=== PATIENT | male | born 1945 | race American Indian/Alaskan Native ===

== ENCOUNTER 2019-10-14 00:28 | Emergency (ER) | payer MEDICARE ==
[2019-10-14 00:46] VITALS: BP 165/99
--- NOTE | 2019-10-14 01:27 | Emergency Department Report ---
HPI - General Chief Complaint: Fall Time Seen by Provider: 10/14/19 01:17 - HPI HPI: Room 5 The patient is a 74-year-old male presenting with chief complaint of fall from bed. The patient is a resident at [facility]. Staff states they heard the patient fall from his bed and hit the ground and when he went to his room he was conscious and in no acute distress. Patient was sent to the ED for evaluation for potential head injury. The patient has a history of Alzheimer's and is a poor historian. Patient currently denies pain Location: [See above] Duration: [See above] Quality: [See above] Severity: [See above] Timing: [See above] Context: [See above] Modifying factors: [See above] Associated signs and symptoms: [see above] ED Past Medical Hx - Past Medical History Previous Medical History?: Yes Additional medical history: alzheimers - Surgical History Past Surgical History?: No - Family History Family history: no significant - Social History Smoking Status: Never Smoker Substance Use Type: None ED Review of Systems ROS: Stated complaint: FALL FROM BED Other details as noted in HPI Comment: Unobtainable due to pts medical conditions Physical Exam - Physical Exam Vital Signs: Vital Signs 10/14/19 00:38 Temperature 98 F Pulse Rate 71 Respiratory 16 Rate Blood Pressure 165/99 O2 Sat by Pulse 97 Oximetry Physical Exam: GENERAL: The patient is well-developed well-nourished male sleeping on stretcher not appearing to be in acute distress. [] HEENT: Normocephalic. Patient has moist mucous membranes. NECK: Supple. Taken midline CHEST/LUNGS: Clear to auscultation. There is no respiratory distress noted. HEART/CARDIOVASCULAR: Regular. There is no tachycardia. There is no gallop rub or murmur. ABDOMEN: Abdomen is soft, nontender. Patient has normal bowel sounds. There is no abdominal distention. SKIN: There is no rash. There is no edema. There is no diaphoresis. NEURO: The patient has a history of Alzheimer's and is a poor historian. Patient is not cooperative with neurologic exam MUSCULOSKELETAL: There is no tenderness to palpation of either lower extremity ED Course Vital Signs 10/14/19 00:38 Temperature 98 F Pulse Rate 71 Respiratory 16 Rate Blood Pressure 165/99 O2 Sat by Pulse 97 Oximetry ED Medical Decision Making - Radiology Data Radiology results: report reviewed (CT head, CT cervical spine), image reviewed (CT head, CT cervical spine) [address] [address] Cat Scan Report Signed Patient: GIUSEPPE FOSTER MR#: [id number] : 1945 Acct:[id number] Age/Sex: 74 / M ADM Date: 10/14/19 Loc: ED Attending Dr: Ordering Physician: SANDRA JOHN MD Date of Service: 10/14/19 Procedure(s): CT head/brain wo con Accession Number(s): [id number] cc: SANDRA JOHN MD CT HEAD WITHOUT CONTRAST INDICATION : Head and neck pain started after fall from bed.. TECHNIQUE: Axial, coronal and sagittal CT imaging was performed from the skull apex through the skull base without contrast. All CT scans at this location are performed using CT dose reduction for ALARA by means of automated exposure control. COMPARISON: None available. FINDINGS: PARENCHYMA: No mass, midline shift, hemorrhage, extraaxial collection or acute territorial infarction. Generalized atrophy is consistent with the patient's age. VENTRICLES: Enlarged secondary to atrophy without an acute abnormality. SOFT TISSUES: Soft tissues including the orbits appear normal. BONES: No acute osseous abnormality. SINUSES: The visualized sinuses are clear. The left mastoid air cells are patent. The right mastoid air cells are mostly opacified by fluid. ADDITIONAL FINDINGS: None. IMPRESSION: 1. No acute abnormality. 2. Additional findings as above. Signer Name: Thomas Dee MD Signed: 10/14/2019 2:52 AM Workstation Name: [id number] Transcribed By: [place] Dictated By: Thomas Dee MD Electronically Authenticated By: Thomas Dee MD Signed Date/Time: 10/14/19251 DD/ 0 TD/TT: [address] [address] Cat Scan Report Signed Patient: GIUSEPPE FOSTER MR#: [id number] : 1945 Acct:[id number] Age/Sex: 74 / M ADM Date: 10/14/19 Loc: ED Attending Dr: Ordering Physician: SANDRA JOHN MD Date of Service: 10/14/19 Procedure(s): CT cervical spine wo con Accession Number(s): [id number] cc: SANDRA JOHN MD CT CERVICAL SPINE WITHOUT CONTRAST INDICATION: Neck pain after fall out of bed. COMPARISON: None available. TECHNIQUE: Axial, coronal and sagittal CT imaging of the cervical spine without contrast was performed. All CT scans at this location are performed using CT dose reduction for ALARA by means of automated exposure control. FINDINGS: VERTEBRAE:No acute fracture. Normal alignment. DISC SPACES: Multilevel severe discogenic degenerative changes are noted. FACET JOINTS:No significant abnormality. CENTRAL CANAL: No significant central canal stenosis is seen. There is multilevel bilateral neural foraminal narrowing. SOFT TISSUES:No acute abnormality. LUNG APICES: No significant abnormality. ADDITIONAL FINDINGS: None IMPRESSION: 1. No acute abnormality of the cervical spine. 2. Severe cervical spondylosis. Signer Name: Thomas Dee MD Signed: 10/14/2019 2:51 AM Workstation Name: [id number] Transcribed By: [place] Dictated By: Thomas Dee MD Electronically Authenticated By: Thomas Dee MD Signed Date/Time: 10/14/19250 DD/ TD/TT: - Differential Diagnosis closed head injury, ICH, skull fracture Critical care attestation.: If time is entered above; I have spent that time in minutes in the direct care of this critically ill patient, excluding procedure time. ED Disposition Clinical Impression: Closed head injury, Scalp abrasion Disposition: DC/TX-70 ANOTHER TYPE HLTHCARE Is pt being admited?: No Does the pt Need Aspirin: No Condition: Stable Instructions: Minor Head Injury (ED) Additional Instructions: Return to the emergency department should you develop worsening symptoms, inability to tolerate food or liquids, high fever or any other concerns Time of Disposition: 03:08
[2019-10-14] MEDS ORDERED: MIDAZOLAM 5 MG/5 ML INJ MDV IV NR (02:00)
--- NOTE | 2019-10-14 02:55 | Cat Scan Report ---
CT CERVICAL SPINE WITHOUT CONTRAST INDICATION: Neck pain after fall out of bed. COMPARISON: None available. TECHNIQUE: Axial, coronal and sagittal CT imaging of the cervical spine without contrast was performe d. All CT scans at this location are performed using CT dose reduction for ALARA by means of automat ed exposure control. FINDINGS: VERTEBRAE:No acute fracture. Normal alignment. DISC SPACES: Multilevel severe discogenic degenerative changes are noted. FACET JOINTS:No significant abnormality. CENTRAL CANAL: No significant central canal stenosis is seen. There is multilevel bilateral neural fo raminal narrowing. SOFT TISSUES:No acute abnormality. LUNG APICES: No significant abnormality. ADDITIONAL FINDINGS: None IMPRESSION: 1. No acute abnormality of the cervical spine. 2. Severe cervical spondylosis. Signer Name: Thomas Dee MD Signed: 10/14/2019 2:51 AM Workstation Name: [id number]
--- NOTE | 2019-10-14 02:57 | Cat Scan Report ---
CT HEAD WITHOUT CONTRAST INDICATION : Head and neck pain started after fall from bed.. TECHNIQUE: Axial, coronal and sagittal CT imaging was performed from the skull apex through the skul l base without contrast. All CT scans at this location are performed using CT dose reduction for ALA RA by means of automated exposure control. COMPARISON: None available. FINDINGS: PARENCHYMA: No mass, midline shift, hemorrhage, extraaxial collection or acute territorial infarctio n. Generalized atrophy is consistent with the patient's age. VENTRICLES: Enlarged secondary to atrophy without an acute abnormality. SOFT TISSUES: Soft tissues including the orbits appear normal. BONES: No acute osseous abnormality. SINUSES: The visualized sinuses are clear. The left mastoid air cells are patent. The right mastoid a ir cells are mostly opacified by fluid. ADDITIONAL FINDINGS: None. IMPRESSION: 1. No acute abnormality. 2. Additional findings as above. Signer Name: Thomas Dee MD Signed: 10/14/2019 2:52 AM Workstation Name: [id number]
[2019-10-14] MEDS ORDERED: NEOMY 3.5 MG/BACIT 400 UNITS/POLY B 5000 UNITS/GM OINT PACKET TP ONE (03:11)
[2019-10-14] MEDS ORDERED: NEOMY 3.5 MG/BACIT 400 UNITS/POLY B 5000 UNITS OINT 15 GM TP ONE (03:14)
[2019-10-14] MEDS ORDERED: NEOMY 3.5 MG/BACIT 400 UNITS/POLY B 5000 UNITS OINT 15 GM TP SCH (08:00)
== END 2019-10-14 04:04 | disposition other institution (70) ==
LOC: ED 00:28
DX: S00.01XA Abrasion of scalp, initial encounter (principal); G30.9 Alzheimer's disease, unspecified; W06.XXXA Fall from bed, initial encounter; Y93.89 Activity, other specified; Y92.89 Other specified places as the place of occurrence of the external cause; Y99.8 Other external cause status
CPT/HCPCS: 70450; 72125; 99284; J2250; A6250